=== PATIENT | female | born 1985 | race Caucasian/White ===

== ENCOUNTER 2018-07-14 12:25 | Emergency (ER) | payer MEDICAID ==
[2018-07-14 12:34] VITALS: TEMP 99.1
--- NOTE | 2018-07-14 13:07 | C.PDOC ---
History Of Present Illness 32 y/o female, currently ~26 weeks , presents to the ED complaining of nasal congestion and sore throat for the past few days. Associated with a non- productive cough. She reports PMHx of asthma but currently denies any wheezing or SOB. Patient states she went to see her doctor and was referred to the ED. Otherwise she denies any fever, chest pain, nausea, vomiting, abdominal pain, or vaginal bleeding. Time Seen by Provider: 07/14/18 12:42 Chief Complaint (Nursing): Shortness Of Breath History Per: Patient History/Exam Limitations: no limitations Onset/Duration Of Symptoms: Days Current Symptoms Are (Timing): Still Present Past Medical History Reviewed: Historical Data, Nursing Documentation, Vital Signs Vital Signs: Last Vital Signs Temp 99.1 F 07/14/18 12:31 Pulse 112 H 07/14/18 12:31 Resp 18 07/14/18 12:31 BP 114/82 07/14/18 12:31 Pulse Ox 100 07/14/18 12:31 - Medical History PMH: No Chronic Diseases Surgical History: No Surg Hx Family History: States: No Known Family Hx - Social History Hx Alcohol Use: Yes Hx Substance Use: No - Immunization History Hx Tetanus Toxoid Vaccination: No Hx Influenza Vaccination: No Review Of Systems Constitutional: Negative for: Fever, Chills ENT: Positive for: Nose Congestion, Throat Pain Cardiovascular: Negative for: Chest Pain Respiratory: Positive for: Cough. Negative for: Shortness of Breath, Wheezing Gastrointestinal: Negative for: Nausea, Vomiting, Abdominal Pain, Diarrhea Genitourinary: Negative for: Vaginal Bleeding Neurological: Negative for: Headache, Dizziness Physical Exam - Physical Exam Appears: Well, Non-toxic, No Acute Distress Skin: Warm, Dry Head: Atraumatic, Normacephalic Eye(s): bilateral: Normal Inspection, PERRL, EOMI Nose: Normal Oral Mucosa: Moist Throat: Erythema (mild pharyngeal erythema), No Exudate Neck: Normal ROM Chest: Symmetrical Cardiovascular: Rhythm Regular, No Murmur Respiratory: Normal Breath Sounds, No Rales, No Rhonchi, No Wheezing Gastrointestinal/Abdominal: Soft, No Tenderness, No Distention Extremity: Bilateral: Atraumatic, Normal Color And Temperature Neurological/Psych: Oriented x3, Normal Speech ED Course And Treatment O2 Sat by Pulse Oximetry: 100 (on RA) Pulse Ox Interpretation: Normal Progress Note: Patient will be given 500mg PO Zithromax and nebs and reassessed. On re-evaluation patient feels better and is stable to be d/c home with PMD and OBGYN follow up. Disposition - Disposition Disposition: HOME/ ROUTINE Disposition Time: 15:41 Condition: STABLE Additional Instructions: Follow up with your PMD and OBGYN within 1-2 days. Return to ED if feel worse. Prescriptions: Albuterol 0.083% [Albuterol Sulfate 3 Ml] 3 ml IH .Q4-6H #100 vial predniSONE [predniSONE Tab] 2 tab PO DAILY #8 tab Albuterol HFA [Ventolin HFA 90 mcg/actuation (8 g)] 1 puff IH .Q4-6H #1 inhaler Azithromycin [Zithromax] 250 mg PO DAILY #4 tab Instructions: Acute Bronchitis, Adult (DC) Forms: [employer] 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 - Scribe Statement The provider has reviewed the documentation as recorded by the Scribelisabet Michelle All medical record entries made by the Scribe were at my direction and persona lly dictated by me. I have reviewed the chart and agree that the record accurately reflects my personal performance of the history, physical exam, medical decision making, and the department course for this patient. I have also personally directed, reviewed, and agree with the discharge instructions and disposition.
[2018-07-14] MEDS ORDERED: Albuterol 0.083% Inhal Sol (2.5 mg/3 mL) UD INH STA (13:16)
[2018-07-14] MEDS: Albuterol-Ipratrop 3 mg / 0.5 (3 ml) UD IH SCH ×3 (13:30→14:00)
[2018-07-14] MEDS ORDERED: Albuterol 0.083% Inhal Sol (2.5 mg/3 mL) UD ONE (14:02)
[2018-07-14] MEDS ORDERED: Albuterol-Ipratrop 3 mg / 0.5 (3 ml) UD ONE ×2 (14:14→14:17)
[2018-07-14 15:48] VITALS: BP 123/77; PULSE 131; RESP 20
[2018-07-14 18:30] VITALS: O2SAT 100
== END 2018-07-14 16:04 | disposition home or self-care (01) ==
LOC: C.ER 12:25
DX: O99.512 Diseases of the respiratory system complicating pregnancy, second trimester (principal); J40 Bronchitis, not specified as acute or chronic; Z3A.26 26 weeks gestation of pregnancy